=== PATIENT | male | born 1930 | race Caucasian/White ===

== ENCOUNTER 2016-10-17 12:36 | Inpatient (IN) ==
[2016-10-17] MEDS ORDERED: VANCOMYCIN IV PER PHARMACY MISC SCH (19:15)
[2016-10-17 19:26] LABS: MANUAL DIFF NEEDED? NO
[2016-10-17 19:33] LABS: BASO% 0.7 % (0.0-0.8); EOS% 5.3 % (0.0-10.0); HEMATOCRIT 34.7 % (42.0-52.0); HEMOGLOBIN 11.6 g/dL (14.0-18.0); LYMPH# 1.46 X1000 (1.2-3.4); MCH 30.4 PG (27-31); MCHC 33.4 g/dL (33-37); MCV 90.8 FL (81-99); MONO# 0.54 X1000 (0.11-0.59); MONO% 9.6 % (1.7-9.3); NEUT% 58.4 % (42.2-75.2); PLT 266 X1000 (130-400); RBC 3.82 XMIL (4.7-6.1)
[2016-10-17 19:45] LABS: HEMOGLOBIN A1C 4.9 % (4.8-6.0)
[2016-10-17 20:04] LABS: CALCIUM 8.8 mg/dL (8.8-10.2); POTASSIUM 4.3 mmol/L (3.5-5.1); TOTAL BILIRUBIN 0.45 mg/dL (0.20-1.00); TOTAL PROTEIN 7.8 g/dL (6.3-8.3)
[2016-10-17] MEDS ORDERED: VANCOMYCIN 1,750 MG in NS 500 ML IV ONE (21:00)
--- NOTE | 2016-10-17 22:31 | HISTORY AND PHYSICAL ---
CHIEF COMPLAINT: Left knee pain, swelling, off and on since a year ago. HISTORY OF PRESENT ILLNESS: He is an 85-year-old white gentleman who had two knee revision surgeries and the last one was done by Dr. Duenas in [place]. He saw me last year in November. He had an infected left knee. I referred to Dr. Duenas in [place]. I have not seen any communication from his office. Patient family was told he isaiah some fluid and sent him antibiotics. Since then, he has on and off pain. He has been losing weight. Unable to ambulate. He has a high elevated sedimentation rate and CRP. There is a concern about septic prosthetic joint. Today in my office, the knee is hot, inflamed, loss of 30 degrees extension. The patient was not able to ambulate daily with a cane. Basically admitted to the hospital after discussing with Dr. Ramsey. Rule out prosthetic infection and MRI of left knee and also Orthopedics consult and started on IV antibiotics. He also had a diffuse left leg swelling and venous Dopplers were ordered to rule out DVT. PAST MEDICAL HISTORY: Carpal tunnel syndrome, type 2 diabetes diet controlled, COPD on oxygen, acid reflux disease, hyperuricemia, diverticulosis, osteoarthritis, spinal stenosis, abnormal chest x-ray with scarring. PAST SURGICAL HISTORY: Rotator cuff repair, right carpal tunnel syndrome, total knee arthroplasty on the right side, revision of left knee replacement x2, bilateral cataract surgery by Dr. Patel. MEDICATIONS: Pepcid 40 mg daily, gabapentin 300 twice daily. Ultracet as needed. Trazodone 50 at bedtime. Oxygen 2 L. ALLERGIES: Reglan. SOCIAL HISTORY: 54 years. Two children. Lives in [place]. No smoking. No alcohol. FAMILY HISTORY: Father of prostate cancer at 68. Mom of kidney failure at 56. HEALTH MAINTENANCE: Flu vaccine 2015, pneumococcal vaccine 2009, shingles 2011 , colonoscopy 2008, last prostate exam May 2016. REVIEW OF SYSTEMS: HEENT: No headache. No vision problem. No earache. No sore throat. Neck: No goiter. No lymphadenopathy. No bruit. Cardiopulmonary: No chest pain. No shortness of breath. Taking oxygen. GI: No nausea, vomiting, abdominal pain. Extremities : Left knee swelling. Not able to walk. Swelling of left leg. Neurologic: No focal symptoms or weakness. PHYSICAL EXAMINATION: VITAL SIGNS: Afebrile. 5 feet 5, 154 pounds. HEENT: Atraumatic, normocephalic. Pupils equal, react to light. TMs are normal. Nose and throat within normal limits. NECK: Supple. No lymphadenopathy. No goiter. CHEST: Bilateral wheezing. HEART: Sounds are very distant. Belly is soft, nontender. Good bowel sounds. EXTREMITIES: Left leg swelling more than the right leg and knee is inflamed and 30 degree flexion deformity. NEUROLOGIC: No obvious neurological deficits noted. INVESTIGATIONS: CBC: White cell count 5.6, hematocrit 34, platelet 266,000. Sedimentation rate is 76. SMA7: Sodium 133, potassium 4.3, chloride 96, BUN 19, creatinine 1.2, glucose 103, A1c 4.9, AST ALT normal. CRP 34. LFTs were normal. ASSESSMENT AND PLAN: An 85-year-old white gentleman admitted to the hospital with left knee, status post prosthetic joint x2, highly suspicious for infection in the joint. I do not see any ballottement. In the light of elevated sedimentation rate and CRP, highly suspicious. Plan is MRI of left knee IV vancomycin. Dr. Peter Ramsey consult. Based on the MRI, further recommendations will be followed. Ancillary support. DVT and GI prophylaxis with Lovenox and Protonix respectively. I will follow up. cc: Sal Schneider MD [facility]ITALDarek
[2016-10-17] MEDS: LOVENOX SUBQ SCH (22:35)
[2016-10-17] MEDS: PROTONIX IV SCH (22:35)
[2016-10-17] MEDS: SODIUM CHLORIDE 0.9% INJ SCH (22:35)
--- NOTE | 2016-10-18 07:10 | CONSULTATION ---
DATE OF CONSULTATION: 10/18/2016 CONCLUSION: I agree with Dr. Schneider that the patient has an infected L total knee arthroplasty. RECOMMENDATION: I agree with treating with vancomycin. I added cefepime, ordered a PICC, and consulted [facility] to supply home IV antibiotics. DISCUSSION: The patient has had two left total knee arthroplasties performed. The last one was 4 years ago. In the past year, the knee has been swollen, hot, and painful to walk on. The patient had an MRI done of the knee. The results are not yet back. The CBC shows a white count of 5610, hemoglobin 11.6, and platelet count of 266,000. Creatinine is 1.2. The GFR is 57. The CRP is 34.31. PAST MEDICAL HISTORY/REVIEW OF SYSTEMS: Eyes and Ears: The patient denies difficulty hearing or seeing. Integument: No rashes. Neck: No stiffness. Respiratory: No cough or shortness of breath. Cardiovascular: No chest pain or palpitations. GI: No nausea, vomiting, or diarrhea. Endocrine: The patient does not have diabetes or thyroid disease. Bones/joints /muscles: He does have joint pain as mentioned above, most likely due to osteoarthritis. Integument: No rash. Neurologic: No seizures. No motor or sensory loss. PREVIOUS HOSPITALIZATIONS AND OPERATIONS: He has had two left total knee arthroplasties performed. He has also had a circumcision. MEDICAL DISEASES: Positive for osteoarthritis. Negative for heart attack or stroke. INFECTIOUS DISEASE HISTORY: Negative for pneumonia and UTI. FAMILY HISTORY: Positive for cancer. Negative for heart attack or stroke. SOCIAL HISTORY: The patient lives in [place]. He is . He has a cat as a pet. He is retired. He stopped smoking cigarettes 30 years ago. He does not drink alcoholic beverages or abuse drugs. ALLERGIES: The patient's chart lists no known drug allergies. HOME MEDICATIONS: Include oxycodone and Naprosyn. PHYSICAL EXAMINATION: Vital Signs: Temperature is 97.8 degrees, pulse 76, respirations 14, blood pressure 127/64. The patient's weight is listed as 154 pounds. General: This is a somewhat ill- appearing, elderly male. He is in no acute distress. HEENT: He can hear my spoken words and see near objects. No drainage noted from the nose or ears. The patient had poor oral hygiene. Neck: No meningismus. Thorax: No increased AP chest diameter. Lungs: Clear to auscultation. Cardiovascular: Peripheral pulses are palpable. Abdomen: Soft and nontender. Bones/joints/muscles: The left knee was swollen. I did not detect any synovial fluid. It was warmer than the right knee. The patient could not fully stretch out his left leg because it caused him too much pain. When I passively move the left knee, it also was painful for the patient. Endocrine: The patient does not have diabetes or thyroid disease. Neurologic: The patient is awake. He can move his extremities. There is no tremor. His sensation is intact to touch. His memory, as regarding his medical history, is intact. Integument: No rash noted. CONCLUSION: I agree with Dr. Schneider that this elderly gentleman has an infected left total knee arthroplasty. RECOMMENDATIONS: I agree with starting the patient on vancomycin. To this, I have added cefepime. My plan would be to continue the patient for a total of 6 weeks. I have requested that a PICC be placed. I have requested also that the patient see me in a followup appointment at 3 weeks, and then again at 6 weeks after discharge. At the 6-week appointment, most likely, the antibiotics will be discontinued and the PICC will be removed. Thank you for the consult. cc: MD Sal Bar MD MTDD
[2016-10-18 07:53] LABS: INR 1.05; PROTIME 11.1 Seconds (9.2-11.7)
[2016-10-18 08:33] LABS: URINE MICRO REVIEW NEEDED? NO; URINE SOURCE VOIDED
[2016-10-18 08:53] LABS: BILIRUBIN URINE NEGATIVE (NEGATIVE); BLOOD URINE NEGATIVE (NEGATIVE); COLOR YELLOW; GLUCOSE URINE NEGATIVE (NEGATIVE); LEUKOCYTES URINE NEGATIVE (NEGATIVE); NITRITE URINE NEGATIVE (NEGATIVE); PH URINE 6.5; PROTEIN URINE NEGATIVE (NEGATIVE); SP GRAVITY URINE 1.007; TURBIDITY URINE CLEAR (CLEAR); UROBILINOGEN URINE NORMAL (NORMAL)
[2016-10-18 08:59] LABS: UR EPITHELIAL CELLS <10 /HPF (<10); URINE BACTERIA NEGATIVE /HPF; URINE RBC <10 /HPF (<10); URINE WBC <10 /HPF (<10)
[2016-10-18] MEDS: MAXIPIME 2 GM/NS 2 GM/100 ML IVPB IV SCH ×2 (08:59→21:10)
[2016-10-18] MEDS: LOVENOX SUBQ SCH ×2 (09:00→21:11)
[2016-10-18] MEDS ORDERED: NS 250 ML ONE (10:26)
--- NOTE | 2016-10-18 21:30 | PROGRESS NOTE ---
DATE: 10/18/2016 SUBJECT: Interval history was reviewed. The patient was seen by Dr. Ramsey and patient complains of left knee pain. MRI was not able to do. EXAMINATION: Vitals: Stable and I's and O's are even. HEENT: Within normal limits. Neck: Supple. No lymphadenopathy. No goiter. Chest: Clear to auscultation. Heart: Sounds are regular. Belly: Soft, nontender. Good bowel sounds. Extremities: Left knee is inflamed. INVESTIGATIONS: High sedimentation rate and high CRP. Urine cultures are pending. ASSESSMENT AND PLAN: 1. 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 Continue on IV vancomycin, added cefepime. 2. Deep vein thrombosis, gastrointestinal prophylaxis with Lovenox and Protonix. 3. Reconcile home medications. 4. Discussed with Dr. Fernandez a 2nd opinion and Dr. Ramsey discussed that he needs IV antibiotics. Will make the arrangements for the continue and will follow up. LEVEL OF DOCUMENTATION: 25 minutes. cc: Sal Schneider MD
[2016-10-18] MEDS: PROTONIX IV SCH (22:50)
[2016-10-18] MEDS: VANCOMYCIN 1 GM/NS 1 GM/250 ML IVPB IV SCH (22:51)
[2016-10-18] MEDS: SODIUM CHLORIDE 0.9% INJ SCH (22:51)
[2016-10-19] MEDS: MAXIPIME 2 GM/NS 2 GM/100 ML IVPB IV SCH (07:48)
[2016-10-19] MEDS ORDERED: VANCOMYCIN 1,400 MG in NS 250 ML IV SCH (09:00)
--- NOTE | 2016-10-19 10:01 | PROGRESS NOTE ---
DATE: 10/19/2016 SUBJECTIVE: Interval history was reviewed.Extremities: Left knee swelling is slightly improved. Unable to ambulate with pain. REVIEW OF SYSTEMS: Otherwise none reported. OBJECTIVE: Vital Signs: Vitals are stable. Input and output negative -350 mL. HEENT Examination: Within normal limits. Chest: Clear. Heart: Sounds are regular. Abdomen: Belly is soft, nontender. Good bowel sounds. Extremities: Left knee he is restricted to 30 degrees extension and slightly inflamed. ASSESSMENT AND PLAN: 1. Left knee prosthetic infection, status post PICC line on the left side. Continue on IV antibiotics. 2. Social service consult for arranging the IV antibiotics. 3. I discussed with Dr. Fernandez for second opinion and we will coordinate the care after discussing with orthopedics. LEVEL OF DOCUMENTATION: Is 15 minutes. cc: Sal Schneider MD
--- NOTE | 2016-10-19 13:39 | PROGRESS NOTE ---
DATE: 10/19/2016 PRESENT ILLNESS: The patient has an infection of his total left knee arthroplasty. MEDICATION: The patient is receiving a combination of vancomycin and Rocephin. PHYSICAL EXAMINATION: Vital Signs: Temperature is 98.4 degrees, pulse is 70, respirations 18, blood pressure 87/53. General: This is a somewhat ill-appearing, elderly male. He is in no acute distress. Lungs: Clear to auscultation. Cardiovascular: Heart rate is regular. Abdomen: Soft and nontender. Bones, joints, muscles: The left knee is swollen and it is warmer than the right knee. Although the knee is swollen, I do not find any definite joint fluid present. The patient has limited motion of the leg at the knee level. It is painful when I passively move the knee. LAB AND X-RAY: The patient's CBC shows a white count of 5,610, hemoglobin 11.6, and platelet count of 266,000. Creatinine is 1.2. GFR is 57. The sedimentation rate 76. The CRP is 34.3. The urine culture showed no growth. ASSESSMENT AND PLAN: I agree with Dr. Schneider that the patient has an infection of his knee prosthesis. I plan to treat the patient with a combination of vancomycin and Rocephin given intravenously for 6 weeks. The patient does not have coverage to do this at home but we will make arrangements for him to come to the infusion center each day for his medication. Specifically, right now the patient is on Rocephin 2 g IV every 24 hours and vancomycin in a dose of 1 g IV every 24 hours. I am planning to treat the patient for 6 weeks with these antibiotics. The lab work that I am going to be ordering is a CBC, creatinine, and vancomycin trough level every Monday and a creatinine every . The patient has a PICC already inserted, through which he will get his antibiotics. The patient's comorbidities include he is elderly. He has had 2 prior surgeries on the knee. He does have underlying osteoarthritis. He stopped smoking cigarettes 30 years ago and does not drink alcoholic beverages. I will be seeing the patient in my office at 3 weeks and then again at 6 weeks when we will stopped the patient's antibiotics and also will remove his PICC. cc: MD Sal Bar MD
[2016-10-19] MEDS: ROCEPHIN 2 GM/NS 2 GM/50 ML IVPB IV SCH (15:21)
--- NOTE | 2016-10-19 18:43 | CONSULTATION ---
DATE OF CONSULTATION: 10/19/2016 CHIEF COMPLAINT: Left knee pain with a left knee revision total knee arthroplasty. HISTORY OF PRESENT ILLNESS: Mr. Rader is an 85-year-old male, who is experiencing left knee pain, and warmth. He has history of a total knee revision arthroplasty done by Dr. Duenas several years ago and he states that he has been experiencing warmth and pain in his knee since. He denies any recent injury. We were asked for further evaluation. For past medical history, allergies, medication, past surgical history see his admission history and physical. REVIEW OF SYSTEMS: Ten point review of systems was reviewed with the patient and was negative other than what was stated in HPI above.General: This is a well developed, well nourished male who is resting comfortably at bedside and is able to articulate and answer all questions fully. HEENT: Head is normocephalic, atraumatic. Neck: Supple. Cardiac: He has 2+ pedal pulses bilaterally. Lungs: Respirations are non labored. Abdomen: Nondistended. Neurological: He discerns soft touch to the affected extremity. Musculoskeletal: Right knee: He has good range of motion of his knee, although he does have a flexion contracture. But he is able to move his knee with minimal pain. There is mild warmth and erythema distal to the incision, but there is no effusion of the knee joint and there is no redness about the knee joint. ASSESSMENT: Left knee pain with a left revision total knee arthroplasty. PLAN: We will get a bone scan to further evaluate. His white blood count is normal. There is no redness about the knee joint and there is no effusion in the knee joint. So, we are unable to determine that there was an infection in his total knee arthroplasty at this time. We plan to get the bone scan and to review the results and formulate a plan once we get those results. Dictated by RHONA Alvarez for Peter Fernandez MD cc: RHONA Alvarez MD Jagan Reddy, MD [facility]
--- NOTE | 2016-10-19 19:48 | Extremity Venous Study ---
PROCEDURE NAME: Venous U/S Left Leg - 10/17/2016 STUDY: Left lower extremity venous ultrasound exam. CONTROL CENTER OPERATOR: Ginette. REQUESTING PHYSICIAN: Dr. Schneider. INDICATION: Edema and pain in the left leg since knee surgery 1 year ago. FINDINGS: The deep and superficial veins of the left lower extremity were visualized along the course. All veins are compressible with forward flow. No evidence of intraluminal thrombus. SUMMARY: No deep or superficial venous thrombosis seen in the left lower extremity. cc: MD Sal Bower MD
[2016-10-19] MEDS: LOVENOX SUBQ SCH (21:05)
[2016-10-19] MEDS: SODIUM CHLORIDE 0.9% INJ SCH (21:05)
[2016-10-19] MEDS: PROTONIX IV SCH (21:05)
[2016-10-19] MEDS: VANCOMYCIN 1 GM/NS 1 GM/250 ML IVPB IV SCH (22:36)
--- NOTE | 2016-10-20 13:53 | Diag Imaging Result Doc PS360 ---
EXAM: KNEE 3 VIEWS LEFT HISTORY: EVALUATE FOR POSSIBLE INFECTED VERSUS TO GO WITH BONE SCAN IN NM TECHNIQUE: Three views COMPARISON: 04/12/2016 FINDINGS: There has been prior orthopedic replacement of the knee. There is good alignment to the femoral and tibial components. No acute fracture or dislocation. There is severe atherosclerosis. Long-standing arthritic changes to the proximal lateral tibia and proximal fibula. No periosteal reaction. No definite bone destruction. IMPRESSION: Stable exam. Electronically signed by Anirudh Ferguson 10/20/2016 1:51 PM
--- NOTE | 2016-10-20 14:00 | Diag Imaging Result Doc PS360 ---
EXAM: 3 PHASE BONE SCAN HISTORY: Evaluate for Possible infected versus loose TECHNIQUE: Three phase bone scan, 26.1 mCi of technetium 99m MDP COMMENT: There is increased flow activity around the left knee with increased blood pool activity as well extending down to the mid to calf region on the lateral aspect. Intensely increased activity is present around the prosthesis on the left. This is particularly notable over the patella. Plain radiographs obtained for correlation today demonstrate soft tissue swelling around the prosthesis with possible erosion of the cortex of the lateral distal femur and in the proximal tibial fibular joint region. There is also heterotopic bone formation in this region. There is heterotopic bone formation around the joint particularly in the anterior part of the joint possibly in the patellar tendon. There appears to be endosteal scalloping around the tibial prosthesis. IMPRESSION: Nonspecific hyperemia and increased uptake on the static bone images around the left knee. The endosteal lytic change is seen in the tibia are particularly worrisome for an infection. Electronically signed by Gio Jimenez 10/20/2016 1:58 PM
[2016-10-20] MEDS: ROCEPHIN 2 GM/NS 2 GM/50 ML IVPB IV SCH (15:26)
--- NOTE | 2016-10-20 17:34 | PROGRESS NOTE ---
DATE: 10/20/2016 PRESENT ILLNESS: The patient has an infected left total knee arthroplasty. MEDICATION: The patient is receiving a combination of vancomycin and Rocephin. PHYSICAL EXAMINATION: Vital Signs: Temperature is 98, pulse 71, respirations 17, blood pressure 135/65. Patient weighs 154 pounds. Generally: This is an elderly male. He is in no acute distress. Lungs: Clear to auscultation. Cardiovascular: Regular heart rate. Abdomen: Soft and not tender. Extremities: The left knee is swollen and warmer than the right. LAB AND X-RAY: The bone scan today showed uptake in the left knee and a lytic change in the tibia particularly worrisome for osteomyelitis. There is no new lab for the patient today. ASSESSMENT AND PLAN: I discussed the patient's case with Dr. Schneider and Dr. Fernandez. Dr. Fernandez felt that the surgery that the patient would require on his knee should be done at either [place] or [place]. I called Dr. Connor Dean at [facility] [place] and made and appointment for the patient to see Dr. Dean on Monday at 1 p.m. at the [facility] in [place] on October 24. Dr. Dean indicated to me that he probably then would operate on the patient on October 26 which is Monday. I think it would be best to discontinue all the patient's antibiotics, and that way when the surgery occurs it will increase the chance of getting a positive culture. I am going to discontinue the vancomycin and Rocephin the patient is on now and I told Dr. Schneider I think it would be best to take out the PICC as well. COMORBIDITIES: Include that he is elderly. He has had 2 prior knee surgeries and he has underlying osteoarthritis. cc: MD Sal Bar MD [facility]
--- NOTE | 2016-10-20 20:53 | PROGRESS NOTE ---
DATE: 10/20/2016 SUBJECTIVE: Patient complaining of left knee pain. Patient was seen by Dr. Fernandez as well as Dr. Ramsey. REVIEW OF SYSTEMS: None reported except left knee pain. OBJECTIVE: Vital signs: Afebrile. Vitals are stable. Input and output are even. HEENT: Within normal limits. Neck: Supple. No lymphadenopathy. Chest: Clear to auscultation. Heart: Sounds are regular. Abdomen: Belly is soft, nontender. Good bowel sounds. 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 ASSESSMENT AND PLAN: Left knee prosthetic infection. Waiting for bone scan. Status post PICC line on the left side. Currently on cefepime and vancomycin. Based on the bone scan, further recommendations will be followed. LEVEL OF DOCUMENTATION: 25 minutes. cc: Sal Schneider MD
[2016-10-20] MEDS: LOVENOX SUBQ SCH (21:04)
[2016-10-20] MEDS: PROTONIX IV SCH (21:04)
[2016-10-21 08:05] VITALS: BP 101/66
[2016-10-21] MEDS ORDERED: PREVNAR 13 IM ONE (08:58)
[2016-10-21] MEDS ORDERED: DESYREL PO SCH (21:00)
[2016-10-22] MEDS ORDERED: SPIRIVA INH SCH (07:30)
--- NOTE | 2016-10-23 07:04 | DISCHARGE SUMMARY ---
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 SECONDARY DIAGNOSES: 1. Type 2 diabetes, diet controlled. 2. 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 3. Acid reflux disease. 4. Hyperuricemia. 5. Diverticulosis. 6. Spinal stenosis. 7. Osteoarthritis. 8. Deconditioning. CONSULTS: Dr. Peter Ramsey, Dr. Fernandez of orthopedics. PROCEDURES: PICC line on the left side. BRIEF HISTORY: Please see the H and P that was done on 10/17/2016. In brief, he is an 85-year- old, white gentleman who was admitted to the hospital with weight loss, chronic left knee pain for 1 year which is hot, swollen, nonfluctuant. He had infection a year ago, under the care of Dr. Duenas in [place]. He has been losing weight. He has a high sedimentation rate and CRP. He was not able to ambulate. After discussion with Dr. Ramsey, patient has been admitted to the hospital for further workup. HOSPITAL COURSE: He was given vancomycin and cefepime. MRI was not able to do and bone scan is highly suspicious for intraarticular infection. Dr. Fernandez has recommended to go to [place] for further management. Dr. Ramsey has arranged to see Dr. Dean on Monday and based on that, further recommendations will be followed. LABS: During this admission as follows: CBC, white cell count 5.6, hematocrit 35, platelet count 266,000. Sedimentation rate was 76, PT 11, INR 1. SMA 7: Sodium 133, potassium 4.3, chloride 96, BUN 19, creatinine 1.2. LFTs were normal. CRP 34. Urinalysis is clear. Urine cultures were negative. Bone scan, hyperemia, increased uptake in static bone images around the left knee, lytic lesions seen in the tibial area, suspicious for infection. Knee x-ray, there has been prior orthopedic replacement of the knee with any good alignment. No acute fracture or dislocation. Severe atherosclerosis changes noted. No definitive bone destruction noted. DISCHARGE INSTRUCTIONS: 1. Naprosyn as needed for pain, Spiriva 1 capsule inhaled daily, trazodone 50 at bedtime, Pepcid 40 daily. 2. Follow up with Dr. Dean next week on Monday and follow up in my office as well next week. cc: MD Peter Kaminski MD Leroy F. Harris, MD
== END 2016-10-21 12:00 | disposition home or self-care (01) ==
LOC: DIRADM 12:36 → 3N 17:17
PROVIDERS: ADMIT Internal Medicine; ATTEND Internal Medicine